=== PATIENT | female | born 2000 | race African-American/Black ===

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

== ENCOUNTER 2020-12-19 19:05 | Emergency (ER) | payer SELFPAY ==
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
[2020-12-19] MEDS ORDERED: traMADol HCl 50 MG TAB ONE ×2 (20:37→20:42)
[2020-12-19] MEDS ORDERED: Orphenadrine Citrate 60 MG/2 ML VIAL ONE (20:37)
== END 2020-12-19 20:49 | disposition home or self-care (01) ==
LOC: NAV ERS 19:05
DX: S16.1XXA Strain of muscle, fascia and tendon at neck level, initial encounter (principal); S29.012A Strain of muscle and tendon of back wall of thorax, initial encounter; V43.52XA Car driver injured in collision with other type car in traffic accident, initial encounter
CPT/HCPCS: 72125; 72128; J2360